=== PATIENT | female | born 1955 | race Caucasian/White ===

== ENCOUNTER 2018-04-05 13:14 | Observation (INO) ==
[2018-04-05] MEDS ORDERED: Isovue-370 500 ML INFUS..BTL IV ONE (13:35)
[2018-04-05] MEDS ORDERED: Metoclopramide 10 MG/2 ML VIAL IVP ONE (13:46)
[2018-04-05] MEDS ORDERED: 0.9 % Sodium Chloride 500 ML IVC ONE (13:46)
[2018-04-05] MEDS ORDERED: Nitroglycerin 25 MG/250 ML INFUS..BTL IVC SCH (14:30)
[2018-04-05] MEDS ORDERED: *HR* LORazepam 0.5 MG TABLET PO ONE (14:44)
[2018-04-05 14:46] LABS: Basophils # 0.1 K/mcL (0.0-0.2); Basophils % 0.7 %; Eosinophils # 0.1 K/mcL (0.0-0.6); Eosinophils % 1.2 %; Hematocrit 39.1 % (35.3-44.9); Hemoglobin 13.2 g/dL (11.5-15.4); Immature Granulocytes % 0.2 % (0-4); Lymphocytes # 4.9 K/mcL (0.6-4.6); Lymphocytes % 49.6 %; Mean Corpuscular HGB Conc 33.8 g/dL (31.6-35.5); Mean Corpuscular Volume 85.9 fL (83.0-100.0); Mean Platelet Volume 8.9 fL (9.4-12.4); Monocytes # 0.8 K/mcL (0.0-1.3); Monocytes % 8.5 %; Neutrophils # 3.9 K/mcL (1.6-8.9); Platelet Count 318 K/mcL (140-400); Red Blood Count 4.55 M/mcL (3.82-4.97); Red Cell Distribution Width 13.9 % (11.5-14.5); Segmented Neutrophils % 39.8 %; White Blood Count 9.8 K/mcL (4.3-11.1)
[2018-04-05 14:54] LABS: Activated Partial Thrombo Time 33.7 Seconds (26.0-36.0)
[2018-04-05 14:55] LABS: Prothrombin Time 11.7 Seconds (9.4-12.1)
[2018-04-05 15:09] LABS: BUN/Creatinine Ratio 17 (6-26); Blood Urea Nitrogen 13 mg/dL (8-23); Calcium 9.5 mg/dL (8.6-10.3); Carbon Dioxide 19 mEq/L (23-29); Chloride 106 mEq/L (98-107); Glucose 105 mg/dL (70-105); Osmolality,Calculated 284 (280-300); Potassium 3.7 mEq/L (3.5-5.1); Sodium 137 mEq/L (136-145); eGFR For African Americans > 60 (> 60); eGFR For Non-African Americans > 60 (> 60)
[2018-04-05 15:10] LABS: Troponin I < 0.03 ng/mL (< 0.04)
[2018-04-05 15:23] LABS: Thyroid Stimulating Hormone 5.029 mcIU/mL (0.340-5.600)
[2018-04-05] MEDS ORDERED: Aspirin 325 MG TABLET PO ONE (16:12)
[2018-04-05] MEDS ORDERED: Naloxone 0.4 MG/ML INJ IVP PRN (17:49)
[2018-04-05] MEDS: Doxycycline 100 MG CAPSULE PO SCH ×2 (19:57→21:47)
[2018-04-05] MEDS: Fluticasone Propionate Nasal 50 MCG/SPRAY BOTTLE NS SCH (19:57)
[2018-04-06 06:30] LABS: Basophils # 0.1 K/mcL (0.0-0.2); Basophils % 0.9 %; Eosinophils # 0.1 K/mcL (0.0-0.6); Eosinophils % 1.1 %; Hematocrit 36.8 % (35.3-44.9); Hemoglobin 12.5 g/dL (11.5-15.4); Immature Granulocytes % 0.2 % (0-4); Lymphocytes # 4.2 K/mcL (0.6-4.6); Lymphocytes % 51.4 %; Mean Corpuscular Hemoglobin 29.8 pg (28.0-33.3); Mean Corpuscular Volume 87.6 fL (83.0-100.0); Mean Platelet Volume 8.9 fL (9.4-12.4); Monocytes # 0.7 K/mcL (0.0-1.3); Monocytes % 8.1 %; Neutrophils # 3.1 K/mcL (1.6-8.9); Platelet Count 272 K/mcL (140-400); Segmented Neutrophils % 38.3 %; White Blood Count 8.2 K/mcL (4.3-11.1)
[2018-04-06 07:06] LABS: BUN/Creatinine Ratio 13 (6-26); Blood Urea Nitrogen 9 mg/dL (8-23); Calcium 9.4 mg/dL (8.6-10.3); Carbon Dioxide 22 mEq/L (23-29); Chloride 105 mEq/L (98-107); Chol/HDL Ratio 4.3 (0-4.9); Cholesterol 183 mg/dL (< 200); Glucose 114 mg/dL (70-105); HDL Cholesterol 43 mg/dL (40-59); LDL Cholesterol,Calculated 94 mg/dL (0-99); Magnesium 2.2 mg/dL (1.6-2.6); Osmolality,Calculated 282 (280-300); Potassium 3.9 mEq/L (3.5-5.1); Sodium 136 mEq/L (136-145); Triglycerides 229 mg/dL (< 150); eGFR For African Americans > 60 (> 60); eGFR For Non-African Americans > 60 (> 60)
[2018-04-06] MEDS: PARoxetine 20 MG TABLET PO SCH (09:09)
[2018-04-06] MEDS: *HR* Heparin 5,000 UNIT/ML VIAL SQ SCH ×2 (09:09→17:41)
[2018-04-06] MEDS: Doxycycline 100 MG CAPSULE PO SCH ×2 (09:10→20:23)
[2018-04-06] MEDS: Aspirin Enteric Coated 81 MG Tablet PO SCH (09:10)
[2018-04-06] MEDS: Fluticasone Propionate Nasal 50 MCG/SPRAY BOTTLE NS SCH ×2 (09:13→14:31)
[2018-04-07] MEDS: *HR* Heparin 5,000 UNIT/ML VIAL SQ SCH (05:30)
[2018-04-07 07:20] VITALS: BP 147/84
[2018-04-07] MEDS: Doxycycline 100 MG CAPSULE PO SCH (07:54)
[2018-04-07] MEDS: PARoxetine 20 MG TABLET PO SCH (07:54)
[2018-04-07] MEDS: Aspirin Enteric Coated 81 MG Tablet PO SCH (07:54)
[2018-04-07] MEDS: Fluticasone Propionate Nasal 50 MCG/SPRAY BOTTLE NS SCH (10:56)
== END 2018-04-07 13:14 | disposition home or self-care (01) ==
LOC: EMEROOARM 13:14 → 3BNU 13:14 → SUATTDRO 17:25 → 2NENU 17:44
PROVIDERS: ADMIT Internal Medicine; ATTEND Internal Medicine